=== PATIENT | female | born 1990 | race Caucasian/White ===

== ENCOUNTER 2018-05-26 14:10 | Emergency (ER) | payer MEDICAID ==
[~2018-05-26] VITALS: Ht 152.4 cm; Wt 64.0 kg
[2018-05-26 14:25] VITALS: Ht 152.4 cm; Wt 64.0 kg
[2018-05-26] MEDS ORDERED: SOD CHLORIDE 0.9% 1,000 ML IV STA (16:23)
[2018-05-26] MEDS ORDERED: morphine 2 MG INJ IV STA (16:23)
[2018-05-26] MEDS ORDERED: ONDANSETRON 4 MG INJ IV STA (16:23)
--- NOTE | 2018-05-26 16:24 | ERD ---
ER Documentation Chief Complaint Chief Complaint ABD PAIN X 1 WEEK WITH N/V/D HPI 27-year-old female, presents to the emergency department, complaining of 1 day with right lower quadrant abdominal pain, associated with nausea and vomiting x3 today. The patient also reports history of increased urinary frequency but no dysuria, no vaginal discharge, no fever or chills. ROS All systems reviewed and are negative except as per history of present illness. Medications Home Meds Active Scripts Hydrocodone/Acetaminophen ([place] 5-325 Tablet) 1 Each Tablet, 1 TAB PO Q6H PRN for PAIN, #7 TAB Prov:ANY PZIANO MD 05/26/18 Ciprofloxacin Hcl* (Ciprofloxacin Hcl*) 250 Mg Tablet, 250 MG PO BID for 7 Days, #14 TAB Prov:ANY PIZANO MD 05/26/18 Allergies Allergies: Coded Allergies: ketorolac (Verified Allergy, Intermediate, RASHES/SWELLING OF THROAT, 05/26/18) PMhx/Soc Medical and Surgical Hx: pt denies Medical Hx, pt denies Surgical Hx Hx Alcohol Use: No Hx Substance Use: No Hx Tobacco Use: Yes Smoking Status: Current every day smoker Physical Exam Vitals Vital Signs Date Temp Pulse Resp B/P (MAP) Pulse Ox O2 O2 Flow FiO2 Time Delivery Rate 05/26/18 98.9 78 18 115/81 99 14:25 (92) Physical Exam Const: Mild distress due to pain Head: Atraumatic Eyes: Normal Conjunctiva ENT: Normal External Ears, Nose and Mouth. Neck: Full range of motion. No meningismus. Resp: Clear to auscultation bilaterally Cardio: Regular rate and rhythm, no murmurs Abd: Soft, tender to palpation of the right lower quadrant area no definitive peritoneal signs, abdomen non distended. Normal bowel sounds Skin: No petechiae or rashes Back: No midline or flank tenderness Ext: No cyanosis, or edema Neur: Awake and alert Psych: Normal Mood and Affect Result Diagram: 05/26/18 1634 05/26/18 1634 Results 24 hrs Laboratory Tests Test 05/26/18 16:27 05/26/18 16:28 05/26/18 16:34 Urine Color YELLOW Urine Clarity SLIGHTLY CLOUDY Urine pH 7.0 Urine Specific [place] 1.011 Urine Ketones NEGATIVE mg/dL Urine Nitrite NEGATIVE mg/dL Urine Bilirubin NEGATIVE mg/dL Urine Urobilinogen NEGATIVE mg/dL Urine Leukocyte Esterase 2+ Luna/ul Urine Microscopic RBC 7 /HPF Urine Microscopic WBC 33 /HPF Urine Squamous Epithelial Cells FEW /HPF Urine Bacteria MANY /HPF Urine Hemoglobin NEGATIVE mg/dL Urine Glucose NEGATIVE mg/dL Urine Total Protein NEGATIVE mg/dl POC Beta HCG, Qualitative NEGATIVE White Blood Count 8.9 10^3/ul Red Blood Count 4.69 10^6/ul Hemoglobin 13.6 g/dl Hematocrit 41.0 % Mean Corpuscular Volume 87.4 fl Mean Corpuscular Hemoglobin 29.0 pg Mean Corpuscular 33.2 g/dl Hemoglobin Concent Red Cell Distribution Width 12.6 % Platelet Count 291 10^3/UL Mean Platelet Volume 9.9 fl Immature Granulocytes % 0.200 % Neutrophils % 66.0 % Lymphocytes % 25.6 % Monocytes % 7.2 % Eosinophils % 0.7 % Basophils % 0.3 % Nucleated Red Blood Cells % 0.0 /100WBC Immature Granulocytes # 0.020 10^3/ul Neutrophils # 5.9 10^3/ul Lymphocytes # 2.3 10^3/ul Monocytes # 0.6 10^3/ul Eosinophils # 0.1 10^3/ul Basophils # 0.0 10^3/ul Nucleated Red Blood Cells # 0.0 10^3/ul Sodium Level 146 mmol/L Potassium Level 3.7 mmol/L Chloride Level 112 mmol/L Carbon Dioxide Level 23 mmol/L Anion Gap 11 Blood Urea Nitrogen 4 mg/dl Creatinine 0.65 mg/dl Est Glomerular Filtrat > 60 mL/min Rate mL/min Glucose Level 97 mg/dl Calcium Level 9.7 mg/dl Total Bilirubin 0.4 mg/dl Direct Bilirubin 0.00 mg/dl Indirect Bilirubin 0.4 mg/dl Aspartate Amino 24 IU/L Transf (AST/SGOT) Alanine 26 IU/L Aminotransferase (ALT/SGPT) Alkaline Phosphatase 87 IU/L Total Protein 8.4 g/dl Albumin 4.5 g/dl Globulin 3.90 g/dl Albumin/Globulin Ratio 1.15 Lipase 190 U/L Current Medications Medications Dose Sig/Megan Start Time Status Last (Trade) Ordered Route PRN Stop Time Admin Dose Reason Admin Sodium 1,000 ml @ Q1H STAT 05/26/18 DC 05/26/18 Chloride 1,000 mls/hr IV 16:23 16:39 05/26/18 17:22 Morphine 2 mg ONCE STAT 05/26/18 DC 05/26/18 Sulfate IV 16:23 16:39 (morphine) 05/26/18 16:28 Ondansetron 4 mg ONCE STAT 05/26/18 DC 05/26/18 HCl (Zofran IV 16:23 16:38 Inj) 05/26/18 16:28 1 mg ONCE STAT 05/26/18 DC 05/26/18 Hydromorphone IV 17:05 17:12 HCl 05/26/18 (Dilaudid) 17:08 Ceftriaxone 50 ml @ ONCE ONCE 05/26/18 DC 05/26/18 Sodium 100 mls/hr IVPB 17:30 17:42 05/26/18 17:59 Procedures/MDM Differential diagnosis include but not limited to: UTI, colitis, gastroenteritis, kidney stones, irritable bowel syndrome, inflammatory bowel syndrome, malabsorption syndrome, cholelithiasis, food intolerance, medication side effect, pancreatitis, diverticulitis, bowel obstruction. Low suspicion for acute abdomen Physical examination and clinical presentation consistent most likely with urinary tract infection. During the ED course the patient remained stable, no new complaints. The patient received treatment with IV medications presenting overall improvement of the symptoms Results and clinical impression discussed with patient who agrees with management. The patient is stable to be treated outpatient and will be discharged home, some side effects of prescribed medications (headache, rash, nausea, vomiting, diarrhea, drowsiness, habituation, bleeding, hypertension, interactions with other medications) were reviewed. The patient was instructed to follow up with the primary care provider in the next 48h. If symptoms persist, worsen or new symptoms develop, then patient should return to the ED immediately. Instructions explained and given directly by me to the patient with acknowledgment and demonstrated understanding. Disclaimer: Inadvertent spelling and grammatical errors are likely due to EHR/dictation software use and do not reflect on the overall quality of patient care. Also, please note that the electronic time recorded on this note does not necessarily reflect the actual time of the patient encounter. Departure Diagnosis: Primary Impression: Abdominal pain Additional Impression: UTI (urinary tract infection) Condition: Stable Additional Instructions: Thank you very much for allowing us to participate in your care. Your health and safety is our top priority at [facility]. Call your primary care doctor TOMORROW for an appointment during the next 2-4 days and bring all the information and medications prescribed. Have prescriptions filled and follow precisely the directions on the label. If the symptoms get worse and your provider is unavailable, return to the Emergency Department immediately. ANY PIZANO MD May 26, 2018 16:24
[2018-05-26] MEDS ORDERED: HYDROmorphONE 0.5 MG/0.5 ML SYG IV STA (17:05)
[2018-05-26] MEDS ORDERED: CEFTRIAXONE 1 GM/50 ML (PMX) 50 ML IVPB ONE (17:30)
[2018-05-26] MEDS ORDERED: HYDR-4011 PO (18:22)
[2018-05-26] MEDS ORDERED: CIPR-193 PO (18:22)
[2018-05-26 18:44] VITALS: BP 116/62; PULSE 67; RESP 16
== END 2018-05-26 18:45 | disposition home or self-care (01) ==
LOC: FTE 14:10
DX: N39.0 Urinary tract infection, site not specified (principal); F17.210 Nicotine dependence, cigarettes, uncomplicated
CPT/HCPCS: 74176; 80053; 81001; 81025; 83690; 85025; J0696; J1170; J2270; J2405; J7030; 36415; 96361; 96365; 96375